=== PATIENT | male | born 1965 | race Caucasian/White ===

== ENCOUNTER 2016-06-26 12:31 | Observation (INO) | payer OTHER ==
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
[2016-06-26 12:19] LABS: BASOPHILS 0.2 %; BASOPHILS ABSOLUTE 0.03 10/3/uL (0.0-0.16); EOSINOPHILS 1.9 %; EOSINOPHILS ABSOLUTE 0.23 10/3/uL (0.0-0.53); ER CBC TAT 0 Hrs 05 Mins; HEMATOCRIT 43.4 % (40.0-51.0); IMMATURE GRANULOCYTES 0.3 %; IMMATURE GRANULOCYTES ABSOLUTE 0.04 10/3/uL (0.0-0.11); LYMPHOCYTES 28.4 %; LYMPHOCYTES ABSOLUTE 3.47 10/3/uL (0.67-4.30); MEAN CORPUS HGB CONC 34.6 g/dL (32.0-36.0); MEAN CORPUSCULAR HEMOGLOB 31.8 pg (26.0-34.0); MEAN PLATELET VOLUME 9.1 fL (9.2-13.0); MONOCYTES ABSOLUTE 0.98 10/3/uL (0.21-1.20); NEUTROPHILS 61.2 %; NEUTROPHILS ABSOLUTE 7.45 10/3/uL (2.02-8.40); PLATELET COUNT 308 10/3/uL (150-400); RBC DISTRIBUTION WIDTH 13.5 % (12.0-16.0); RED CELL COUNT 4.72 10/6/uL (4.7-6.1); WHITE BLOOD CELLS 12.2 10/3/uL (4.5-10.5)
[2016-06-26 12:20] LABS: MANUAL DIFF NO %; MEAN CORPUSCULAR VOLUME 91.9 fL (80-100)
[2016-06-26 12:27] LABS: PARTIAL THROMBO TIME 30.9 SEC (22.5-37.2); PROTIME (NOT ORD) 13.3 SEC (12.0-14.5)
[~2016-06-26 12:31] MED LIST: DIL4TAB PO; IBU800 PO; LORTAB10 PO; NORCO1 TAB PO; OXYCON40 PO; PCET PO; PROZ10 PO; PROZAC40 MG PO; TRAZ100 PO; TRAZ50 PO; V5 PO
[2016-06-26 12:36] LABS: CALCIUM, SERUM 9.3 MG/DL (8.5-10.4); CHEST PAIN PROFILE TAT 0 Hrs 22 Mins; CHLORIDE, SERUM 105 MMOL/L (96-112); CO2 (CARBON DIOXIDE) 31 MMOL/L (24-34); CREATININE 1.05 MG/DL (0.70-1.30); GFR AFRICAN AMERICAN 95 ML/MIN (>=60); GFR NON AFRICAN AMERICAN 82 ML/MIN (>=60); GLUCOSE, SERUM 92 MG/DL (60-99); POTASSIUM, SERUM 4.4 MMOL/L (3.5-5.3); SODIUM, SERUM 139 MMOL/L (135-148); TROPONIN I <0.02 NG/ML (<0.05)
[2016-06-26 12:37] LABS: BUN (BLOOD UREA NITROGEN) 22 MG/DL (6-23)
[2016-06-26] MEDS ORDERED: ASAB PO (16:26)
[2016-06-26] MEDS ORDERED: LOP25 PO (16:27)
[2016-06-26] MEDS ORDERED: PRIN5 PO (16:27)
[2016-06-26] MEDS ORDERED: PLAVIX PO (16:27)
[2016-06-26] MEDS ORDERED: LIPITOR80 MG PO (16:27)
[2016-06-26] MEDS ORDERED: HABIT7 TOP (16:29)
[2016-06-26] MEDS ORDERED: NITROSTAT0.4 MG SL (16:30)
[2016-06-26] MEDS ORDERED: PRILO PO (16:30)
[2016-06-26] MEDS ORDERED: PROZAC PO (16:30)
[2016-06-26] MEDS ORDERED: TRAZ100 PO (16:31)
== END 2016-06-27 15:53 | disposition home or self-care (01) ==
LOC: ER 12:31 → CDU1 15:17 → CDU2 16:06
PROVIDERS: Emergency Medicine
DX: R07.2 Precordial pain (principal); I25.10 Atherosclerotic heart disease of native coronary artery without angina pectoris; M51.36 Other intervertebral disc degeneration, lumbar region; I10 Essential (primary) hypertension; E78.5 Hyperlipidemia, unspecified; F32.9 Major depressive disorder, single episode, unspecified; K21.9 Gastro-esophageal reflux disease without esophagitis; Z90.89 Acquired absence of other organs; Z79.82 Long term (current) use of aspirin; Z79.899 Other long term (current) drug therapy
CPT/HCPCS: 71010; 78452; 80048; 83735; 83880; 84484; 85025; 85610; 85730; 93005; 93017; 96374; 96376; 99285; A9270-GY; A9502; G0378; J0153